=== PATIENT | female | born 2000 | race Caucasian/White ===

== ENCOUNTER 2023-03-28 18:11 | Outpatient (CLI) | payer OTHER ==
[~2023-03-28] VITALS: Ht 160 cm; Wt 71.6 kg
== END 2023-03-28 19:20 | disposition home or self-care (01) ==
LOC: M LDO 18:11
PROVIDERS: ATTEND Obstetrics & Gynecology
DX: O26.893 Other specified pregnancy related conditions, third trimester (principal); N89.8 Other specified noninflammatory disorders of vagina; Z3A.34 34 weeks gestation of pregnancy
CPT/HCPCS: 59025; G0463

== ENCOUNTER 2023-04-23 20:09 | Outpatient (CLI) | payer OTHER ==
[~2023-04-23] VITALS: Ht 160 cm; Wt 75.2 kg
[2023-04-23 20:32] VITALS: BP 121/79
== END 2023-04-23 21:38 | disposition home or self-care (01) ==
LOC: M LDO 20:09
PROVIDERS: ATTEND Obstetrics & Gynecology
DX: O36.8130 Decreased fetal movements, third trimester, not applicable or unspecified (principal); Z3A.38 38 weeks gestation of pregnancy; O99.283 Endocrine, nutritional and metabolic diseases complicating pregnancy, third trimester; E03.9 Hypothyroidism, unspecified
CPT/HCPCS: 59025; 76815; 76819; 76820; G0463

== ENCOUNTER 2023-05-06 06:45 | Inpatient (IN) | payer OTHER ==
[2023-05-06] VITALS (10 sets, daily range): BP systolic 123–181; BP diastolic 65–100; O2SAT 97–99
[~2023-05-06] VITALS: Ht 160 cm; Wt 73.0 kg
[2023-05-06] MEDS ORDERED: CARBOPROST TROMETHAMINE 250 MCG/ML AMP IM PRN (06:50)
[2023-05-06] MEDS ORDERED: TRANEXAMIC ACID INJection 1,000 MG in NS 100 ML IV PRN (06:50)
[2023-05-06] MEDS ORDERED: OXYTOCIN 30UNITS IN 0.9% NaCl 500ML IV BAG As Ordered ONE (07:11)
[2023-05-06 08:16] LABS: HEMATOCRIT 41.4 % (36.0-47.0); HEMOGLOBIN 14.3 g/dl (12.0-15.5); MEAN CORPUSCULAR HEMOGLOBIN 29.4 pg (27.0-33.0); MEAN CORPUSCULAR HGB CONC 34.5 g/dl (32.0-36.5); PLATELET COUNT, AUTOMATED 230 10^3/uL (150-450); RED BLOOD COUNT 4.87 10^6/uL (4.00-5.40); WHITE BLOOD COUNT 15.6 10^3/uL (4.0-10.0)
[2023-05-06] MEDS ORDERED: LIDOCAINE 1% MDV 20ML VIAL As Ordered ONE (08:34)
[2023-05-06] MEDS: LR 1,000 ML IV SCH (08:59)
[2023-05-06] MEDS: LIDOCAINE 1% MDV 20ML VIAL INFIL PRN (08:59)
[2023-05-06] MEDS: LIDOCAINE 1% MDV 20ML VIAL IM ONE (09:00)
[2023-05-06] MEDS: OXYTOCIN DRIP 30 UNITS in IV 1 EA IV PRN ×2 (09:04→09:35)
[2023-05-06] MEDS ORDERED: MOM 30ML SUSPENSION UDC PO PRN (09:25)
[2023-05-06] MEDS ORDERED: RHOGAM 300MCG (1500IU) INJ IM SCH (09:25)
[2023-05-06] MEDS: METHYLERGONOVINE MALEATE 0.2MG/ML 1ML VIAL IM PRN (10:33)
[2023-05-06] MEDS: IBUPROFEN 800 MG TAB PO PRN (11:35)
[2023-05-06] MEDS: METHYLERGONOVINE MALEATE 0.2 MG TAB PO SCH (13:01)
[2023-05-06] MEDS: ACETAMINOPHEN 500 MG TAB PO PRN (17:37)
[2023-05-07] MEDS ORDERED: UNRESOLVED CLARIFICATION ENTRY XX SCH (00:01)
[2023-05-07] MEDS: LEVOTHYROXINE 88MCG TABLET (0.088 MG) PO SCH (05:03)
[2023-05-07 06:00] VITALS: BP 115/64; O2SAT 98
[2023-05-07] MEDS ORDERED: **** TDAP VACCINE DUE PRIOR TO D/C**** MISC XX SCH (09:00)
[2023-05-07] MEDS: DOCUSATE SODIUM 100MG CAPSULE PO PRN (10:32)
[2023-05-07] MEDS: SERTRALINE HCL 50 MG TAB PO SCH (10:32)
[2023-05-07] MEDS: PRENATAL VITAMINS CHEWABLE TABLET PO SCH (10:32)
[2023-05-07] MEDS: DIBUCAINE 1% OINTMENT 30GM TOP PRN (10:35)
[2023-05-07] MEDS: ANUSOL HC CREAM 30GM TOP PRN (10:36)
[2023-05-07] MEDS: BOOSTRIX VACCINE (TETANUS/DIPHTH/ACEL. PERTUSSIS) 0.5ML SYR IM.IMMUN ONE (12:23)
[2023-05-08] MEDS ORDERED: MEASLES,MUMPS,RUBELLA VACCINE INJ (MMR-II) SC.IMMUN ONE (09:00)
== END 2023-05-07 15:00 | disposition home or self-care (01) | DRG 807 ==
LOC: M LDO 06:45 → M LDI 06:57 → M OBS 11:58
PROVIDERS: ADMIT Obstetrics & Gynecology; ATTEND Obstetrics & Gynecology
PROC: 10E0XZZ Delivery of Products of Conception, External Approach (ICD-10-PCS; principal; 2023-05-06)
PROC: 0KQM0ZZ Repair Perineum Muscle, Open Approach (ICD-10-PCS; 2023-05-06)
DX: O70.1 Second degree perineal laceration during delivery (principal); Z37.0 Single live birth; Z3A.39 39 weeks gestation of pregnancy; O77.0 Labor and delivery complicated by meconium in amniotic fluid

== ENCOUNTER 2023-11-27 17:05 | Emergency (ER) | payer OTHER ==
[~2023-11-27] VITALS: Ht 160 cm; Wt 59.5 kg
[2023-11-27 17:54] LABS: BASO # 0.1 10^3/uL (0.0-0.2); BASO % 0.6 % (0.0-1.0); EOS # 0.1 10^3/uL (0.0-0.5); HEMATOCRIT 45.7 % (36.0-47.0); HEMOGLOBIN 15.3 g/dl (12.0-15.5); LYMPH # 1.3 10^3/uL (1.5-5.0); LYMPH % 14.2 % (24.0-44.0); MEAN CORPUSCULAR HEMOGLOBIN 27.8 pg (27.0-33.0); MEAN CORPUSCULAR HGB CONC 33.5 g/dl (32.0-36.5); MEAN CORPUSCULAR VOLUME 83.1 fl (80.0-96.0); MONO # 0.4 10^3/uL (0.0-0.8); MONO % 4.2 % (2.0-8.0); NEUTROPHILS # 7.2 10^3/uL (1.5-8.5); NEUTROPHILS % 79.8 % (36.0-66.0); PLATELET COUNT, AUTOMATED 304 10^3/uL (150-450)
[2023-11-27 18:18] LABS: BLOOD UREA NITROGEN 9 MG/DL (9-23); CALCIUM LEVEL 10.3 MG/DL (8.5-10.1); CARBON DIOXIDE LEVEL 27 MMOL/L (20-31); CHLORIDE LEVEL 104 MMOL/L (98-107); CREATININE FOR GFR 0.69 MG/DL (0.55-1.30); GLOMERULAR FILTRATION RATE > 60.0 (>60); GLUCOSE, FASTING 90 MG/DL (60-100); HCG, SERUM QUALITATIVE NEGATIVE (NEGATIVE); POTASSIUM SERUM 4.3 MMOL/L (3.5-5.1); SODIUM LEVEL 137 MMOL/L (136-145)
[2023-11-27 19:29] LABS: APPEARANCE, URINE CLEAR (CLEAR); BACTERIA, URINE AUTO NEGATIVE (NEGATIVE); BILIRUBIN, URINE AUTO NEGATIVE (NEGATIVE); BLOOD, URINE BLOOD 3+ (NEGATIVE); COLOR, URINE YELLOW (YELLOW); GLUCOSE, URINE (UA) AUTO NEGATIVE (NEGATIVE); KETONE, URINE AUTO NEGATIVE (NEGATIVE); LEUKOCYTE ESTERASE, URINE AUTO NEGATIVE (NEGATIVE); MUCUS, URINE SMALL (NEGATIVE); NITRITE, URINE AUTO NEGATIVE (NEGATIVE); PROTEIN, URINE AUTO NEGATIVE (NEGATIVE); RBC, URINE AUTO 1 /HPF (0-3); SQUAMOUS EPITHELIAL CELL UR AU 1 /HPF (0-6); UROBILINOGEN, URINE AUTO 0.2 mg/dL (0.0-2.0); WBC, URINE AUTO 2 /HPF (0-3)
[2023-11-27 20:48] VITALS: BP 115/77; TEMP 98.5; O2SAT 99
== END 2023-11-27 22:39 | disposition home or self-care (01) ==
LOC: M ED 17:05
DX: N93.9 Abnormal uterine and vaginal bleeding, unspecified (principal); A74.9 Chlamydial infection, unspecified; Z97.5 Presence of (intrauterine) contraceptive device; E03.9 Hypothyroidism, unspecified; F10.10 Alcohol abuse, uncomplicated; N83.02 Follicular cyst of left ovary; Z91.048 Other nonmedicinal substance allergy status